=== PATIENT | male | born 1980 | race Caucasian/White ===

== ENCOUNTER 2021-10-09 16:34 | Emergency (ER) | payer OTHER ==
[2021-10-09] MEDS ORDERED: NA CHLORIDE 0.9% 1,000 ML ONE ×2 (17:24→19:38)
[2021-10-09 17:43] LABS: Protime INR 2.42
[2021-10-09 17:51] LABS: Absolute Lymphocytes (CBC) 2.3 K/uL (0.7-4.9); Albumin 3.1 g/dL (3.4-5.0); Bilirubin Direct 6.7 mg/dL (0-0.2); Lymphocytes % 24.1 % (15.3-44.8); MCV 91.6 fL (80-100); MPV 9.5 fL (7.6-11.3); Potassium 3.9 mmol/L (3.5-5.1); Protein, Total 7.7 g/dL (6.4-8.2)
[2021-10-09 17:54] LABS: Bilirubin Total 7.9 mg/dL (0.2-1.0)
[2021-10-09 18:02] LABS: Urine Blood Negative (Negative); Urine Glucose Negative (Negative); Urine Protein Negative (Negative); Urine Specific Gravity >=1.030 (1.005-1.030); Urine pH 5.5 (5.0-7.0)
[2021-10-09 18:08] LABS: Urine Blood Negative (Negative); Urine Glucose Trace (Negative); Urine Protein Trace (Negative); Urine Specific Gravity >=1.030 (1.005-1.030)
[2021-10-09 18:31] LABS: Urine Bacteria <20 /HPF (<20); Urine RBC <5 /HPF (None Seen)
[2021-10-09 18:46] LABS: Barbiturates NEGATIVE (NEGATIVE); Benzodiazepines NEGATIVE (NEGATIVE); Cocaine NEGATIVE (NEGATIVE); METHAMPHETAM NEGATIVE (NEGATIVE); Methadone NEGATIVE (NEGATIVE); Opiates NEGATIVE (NEGATIVE); Phencyclidine NEGATIVE (NEGATIVE); THC Cannibis NEGATIVE (NEGATIVE)
--- NOTE | 2021-10-09 19:09 | RAD REPORT ---
EXAM DESCRIPTION: CTAbdomen Pelvis W Contrast - 10/09/2021 6:57 pm CLINICAL HISTORY: Abdominal pain. abnormal liver enzymes COMPARISON: No comparisons TECHNIQUE: Biphasic CT imaging of the abdomen and pelvis was performed with 100 ml non-ionic IV cont rast. All CT scans are performed using dose optimization technique as appropriate and may include automated exposure control or mA/KV adjustment according to patient size. FINDINGS: The lung bases are clear. The liver demonstrates moderate intrahepatic biliary tree dilatation. Cholelithiasis. Spleen, pancrea s, adrenal glands and kidneys are within normal limits. No bowel obstruction, free air, free fluid or abscess. The appendix is normal. No evidence of signi ficant lymphadenopathy. No suspicious bony findings. IMPRESSION: Moderate intrahepatic biliary tree dilatation is seen. Cholelithiasis is present. Right upper quadrant ultrasound is recommended for further evaluation.
--- NOTE | 2021-10-09 19:41 | RAD REPORT ---
EXAM DESCRIPTION: US - Abdomen Exam Limited - 10/09/2021 7:35 pm CLINICAL HISTORY: elevated liver enzymes Abdominal pain COMPARISON: No comparisons FINDINGS: The gallbladder demonstrates extensive sludge and stones. Gallbladder wall is mildly thick ened up to 4 mm. The common bile duct is upper limit of normal measuring 5-6 mm. The liver demonstrates [id number] intrahepatic biliary tree dilatation. IMPRESSION: The gallbladder appears filled with stones and sludge mild thickening of the gallbladder wall. Common bile duct is upper limit of normal in size. Mild to moderate intrahepatic biliary tree dilatation. MRCP followup could be useful for further evaluation.
--- NOTE | 2021-10-09 19:53 | ER ---
Nurse's Notes [facility] Name: Farooq Brito Age: 40 yrs Sex: Male : 1980 Arrival Date: 10/09/2021 Time: 16:43 Bed 7 Private MD: Diagnosis: Hepatic failure, unspecified without coma;Other cholelithiasis with obstruction Presentation: 10/09 16:43 Chief complaint: Patient states: "for 2 weeks I notice that my skin color looks yellow em6 and my eyes are yellow. I'm also itchy all over my body. my LBM was on 10/08/21 and it was a light color. I used to weight 219 on 04/28/2021 now I weight 187". Coronavirus screen: At this time, the client does not indicate any symptoms associated with coronavirus-19. Ebola Screen: Patient negative for fever greater than or equal to 101.5 degrees Fahrenheit, and additional compatible Ebola Virus Disease symptoms. Initial Sepsis Screen: Does the patient meet any 2 criteria? No. Patient's initial sepsis screen is negative. Does the patient have a suspected source of infection? No. Patient's initial sepsis screen is negative. Risk Assessment: Do you want to hurt yourself or someone else? Patient reports no desire to harm self or others. Onset of symptoms was September 25, 2021. 16:43 Method Of Arrival: [employer] Enforcement: [place] [employer] em6 16:43 Acuity: ALVIN 3 em6 Triage Assessment: 16:48 General: Appears in no apparent distress. comfortable, Behavior is calm, cooperative. em6 Pain: Denies pain. Historical: - Allergies: 16:49 No Known Allergies; em6 - PMHx: 16:49 None; em6 - PSHx: 16:49 hernia repair; em6 - Immunization history:: Adult Immunizations unknown. - Social history:: Smoking status: unknown. Screenin:48 Abuse screen: Denies threats or abuse. Nutritional screening: No deficits noted. em6 Tuberculosis screening: No symptoms or risk factors identified. 17:00 Fall Risk IV access (20 points). Total Ziegler Fall Scale indicates No Risk (0-24 pts). em6 Assessment: 16:51 General: Appears in no apparent distress. comfortable, Behavior is calm, cooperative. em6 Pain: Denies pain. Neuro: Fontenot Agitation-Sedation Scale (RASS): 0 - Alert and Calm. Cardiovascular: Heart tones present Capillary refill < 3 seconds Patient's skin is warm and dry. Respiratory: Airway is patent Respiratory effort is even, unlabored, Respiratory pattern is regular, symmetrical, Breath sounds are clear bilaterally. GI: Abdomen is non-distended. : No signs and/or symptoms were reported regarding the genitourinary system. EENT: No signs and/or symptoms were reported regarding the EENT system. Derm: No signs and/or symptoms reported regarding the dermatologic system. Derm: unknown bug bites in both lower limbs. 18:00 Reassessment: Patient appears in no apparent distress at this time. No changes from em6 previously documented assessment. Patient and/or family updated on plan of care and expected duration. Pain level reassessed. Patient is alert, oriented x 3, equal unlabored respirations, skin warm/dry/pink. 19:52 General: Appears in no apparent distress. Neuro: Level of Consciousness is awake, kd3 alert, obeys commands, Oriented to person, place, time, situation. Respiratory: Airway is patent Trachea midline. Vital Signs: 16:43 BP 130 / 87; Pulse 65; Resp 16; Temp 98.5; Pulse Ox 98% on R/A; Weight 84.82 kg; Height em6 5 ft. 11 in. (180.34 cm); Pain 0/10; 18:00 BP 119 / 68; Pulse 55; Resp 14; Pulse Ox 99% ; em6 20:38 Pulse 60; Pulse Ox 100% on R/A; kd3 16:43 Body Mass Index 26.08 (84.82 kg, 180.34 cm) em6 ED Course: 16:43 Patient arrived in ED. em6 16:45 Jose Gross PA is PHCP. cp 16:45 Alonso Martin DO is Attending Physician. cp 16:48 Triage completed. em6 16:48 Arm band placed on. em6 16:51 Patient has correct armband on for positive identification. Bed in low position. Call em6 light in reach. Pulse ox on. NIBP on. 17:16 Edilson Butterfield RN is Primary Nurse. jd3 17:20 Inserted saline lock: 20 gauge in right antecubital area, using aseptic technique. em6 Blood collected. 18:58 CT Abd/Pelvis - IV Contrast Only In Process Unspecified. EDMS 19:36 US Abdomen Limited In Process Unspecified. EDMS 19:36 AMMONIA Sent. jb4 19:36 Acetaminophen Sent. jb4 19:36 ETOH Level Sent. jb4 19:36 Salicylate Sent. jb4 20:00 Initiated transfer to [facility], Jose Gross spoke with Coordinator there. 21:10 Called [facility] back to let them know Covid results, spoke with Sandra, she stated she would call me back. 22:04 Pt accepted for transfer by Dr. Ivis Martinez per Sandra Hobson. wm Administered Medications: 17:30 Drug: NS 0.9% 1000 ml Route: IV; Rate: 1 bolus; Site: right antecubital; em6 19:54 Follow up: Response: No adverse reaction kd3 19:32 Drug: NS 0.9% 1000 ml Route: IV; Rate: 1 bolus; Site: right antecubital; kd3 Medication: 16:51 VIS not applicable for this client. em6 Outcome: 19:52 ER care complete, transfer ordered by . cp 23:26 Patient left the ED. jb4 Signatures: Dispatcher [employer] EDMS Jose Gross PA PA cp Bryson, James RN RN jb4 Edilson Butterfield RN RN Yvette Quintero Nara Bedoya RN RN kd3 Aby Pimentel RN RN em6 Corrections: (The following items were deleted from the chart) 21:14 20:00 Initiated transfer to [facility] 21:14 20:00 Called [facility] back to let them know Covid results, spoke with Sandra, she stated she would call me back wm 22:27 22:26 Pt accepted for transfer by Dr. Ivis Martinez per Sandra Hobson [facility]
--- NOTE | 2021-10-09 19:53 | EDPHYS ---
Physician Documentation [facility] Name: Farooq Brito Age: 40 yrs Sex: Male : 1980 Arrival Date: 10/09/2021 Time: 16:43 Bed 7 Private MD: ED Physician Alonso Martin HPI: 10/09 17:30 This 40 yrs old Male presents to ER via Law Enforcement with complaints of Jaundice. cp 17:30 jaundice for past 2 weeks. Weight loss since April 2021. Generalized itching. Noticed cp discolored stool but denies abdominal pain and/or blood in stool. Historical: - Allergies: 16:49 No Known Allergies; em6 - PMHx: 16:49 None; em6 - PSHx: 16:49 hernia repair; em6 - Immunization history:: Adult Immunizations unknown. - Social history:: Smoking status: unknown. ROS: 17:35 Constitutional: Positive for weight loss, Negative for body aches, chills, fever, poor cp PO intake. 17:35 Eyes: Positive for icterus, Negative for discharge, pain, redness, visual disturbance. cp 17:35 ENT: Negative for drainage from ear(s), ear pain, sore throat, difficulty swallowing, difficulty handling secretions. 17:35 Cardiovascular: Negative for chest pain, edema, palpitations. 17:35 Respiratory: Negative for cough, shortness of breath, wheezing. 17:35 Abdomen/GI: Negative for abdominal pain, nausea, vomiting, diarrhea, constipation, black/tarry stool, rectal pain, rectal bleeding. 17:35 Back: Negative for pain at rest, pain with movement. 17:35 : Negative for urinary symptoms. 17:35 Neuro: Negative for altered mental status, dizziness, headache, numbness, syncope, weakness. 17:35 All other systems are negative. Exam: 17:40 Constitutional: The patient appears in no acute distress, alert, awake, comfortable, cp non-toxic, well developed, well nourished. 17:40 Head/Face: Normocephalic, atraumatic. cp 17:40 Eyes: Periorbital structures: appear normal, Pupils: equal, round, and reactive to light and accomodation, Extraocular movements: intact throughout, Sclera: icterus, is present, Lids and lashes: appear normal, bilaterally. 17:40 ENT: External ear(s): are unremarkable, Nose: is normal, Mouth: Lips: moist, Oral mucosa: pink and intact, moist, Posterior pharynx: Airway: no evidence of obstruction, patent, swelling, is not appreciated, erythema, is not appreciated, exudate, is not appreciated. 17:40 Neck: ROM/movement: is normal, is supple, without pain, no range of motions limitations, no meningismus, Lymph nodes: no appreciated lymphadenopathy. 17:40 Chest/axilla: Inspection: normal. 17:40 Cardiovascular: Rate: normal, Rhythm: regular, Edema: is not appreciated, JVD: is not appreciated. 17:40 Respiratory: the patient does not display signs of respiratory distress, Respirations: normal, no use of accessory muscles, no retractions, labored breathing, is not present, Breath sounds: are clear throughout, no decreased breath sounds, no stridor, no wheezing. 17:40 Abdomen/GI: Inspection: abdomen appears normal, Bowel sounds: active, all quadrants, Palpation: abdomen is soft and non-tender, in all quadrants. 17:40 Skin: Appearance: Color: jaundiced, Temperature: warm. 17:40 Neuro: Orientation: to person, place \T\ time. Mentation: is normal, Cerebellar function: is grossly normal, Motor: moves all fours, strength is normal, Sensation: is normal. Vital Signs: 16:43 BP 130 / 87; Pulse 65; Resp 16; Temp 98.5; Pulse Ox 98% on R/A; Weight 84.82 kg; Height em6 5 ft. 11 in. (180.34 cm); Pain 0/10; 18:00 BP 119 / 68; Pulse 55; Resp 14; Pulse Ox 99% ; em6 20:38 Pulse 60; Pulse Ox 100% on R/A; kd3 16:43 Body Mass Index 26.08 (84.82 kg, 180.34 cm) em6 MDM: 17:03 Patient medically screened. cp 17:30 Differential Diagnosis sepsis, biliary cancer, choledocholithiasis, biliary cp pancreatitis. 21:10 Data reviewed: vital signs, nurses notes, lab test result(s), radiologic studies, CT cp scan, ultrasound. 21:10 Physician consultation: was contacted at 21:10, regarding regarding transfer, to [facility]. cp patient's condition, accepting physician will be DR Martinez. 10/09 17:05 Order name: CBC with Diff; Complete Time: 17:58 cp 10/09 18:19 Interpretation: Reviewed. cp 10/09 17:05 Order name: CMP; Complete Time: 17:58 cp 10/09 17:59 Interpretation: Normal except: GLUC 115; AST 55; ALK 280; BILIT 7.9; ALB 3.1; GLOB 4.6; cp A/G 0.7. 10/09 17:05 Order name: Lipase; Complete Time: 17:58 cp 10/09 19:52 Interpretation: LIP 98; Reviewed. cp 10/09 17:05 Order name: Urine Microscopic Only; Complete Time: 20:12 cp 10/09 18:40 Interpretation: Reviewed. cp 10/09 17:05 Order name: Ptt, Activated; Complete Time: 17:48 cp 10/09 17:48 Interpretation: Abnormal: PTT 55.1. 10/09 17:05 Order name: PT-INR; Complete Time: 17:48 cp 10/09 17:48 Interpretation: Abnormal: PT 27.1. cp 10/09 17:05 Order name: LFT's; Complete Time: 17:58 cp 10/09 17:59 Interpretation: Abnormal: BILID 6.7. cp 10/09 17:05 Order name: UDS; Complete Time: 18:53 cp 10/09 18:53 Interpretation: Reviewed. cp 10/09 18:03 Order name: Urine Dipstick-Ancillary; Complete Time: 18:19 EDMS 10/09 18:08 Order name: Urine Dipstick-Ancillary; Complete Time: 18:19 EDMO 10/09 18:19 Interpretation: Normal except: UPROT Trace. cp 10/09 19:21 Order name: AMMONIA; Complete Time: 21:08 cp 10/09 19:21 Order name: Acetaminophen; Complete Time: 21:08 cp 10/09 19:21 Order name: Salicylate; Complete Time: 21:08 cp 10/09 19:21 Order name: ETOH Level; Complete Time: 21:08 cp 10/09 17:05 Order name: IV Saline Lock; Complete Time: 19:33 cp 10/09 17:05 Order name: Labs collected and sent; Complete Time: 19:26 cp 10/09 17:05 Order name: Urine Dipstick-Ancillary (obtain specimen); Complete Time: 19:26 cp 10/09 18:00 Order name: CT Abd/Pelvis - IV Contrast Only; Complete Time: 19:16 cp 10/09 19:17 Order name: US Abdomen Limited; Complete Time: 19:47 cp 10/09 19:27 Order name: NPO; Complete Time: 19:32 cp 10/09 20:16 Order name: SARS RAPID; Complete Time: 21:08 cp Administered Medications: 17:30 Drug: NS 0.9% 1000 ml Route: IV; Rate: 1 bolus; Site: right antecubital; em6 19:54 Follow up: Response: No adverse reaction kd3 19:32 Drug: NS 0.9% 1000 ml Route: IV; Rate: 1 bolus; Site: right antecubital; kd3 Disposition Summary: 10/09/21 19:52 Transfer Ordered Transfer Location: [facility] cp Reason: Higher level of care cp Condition: Stable cp Problem: new cp Symptoms: are unchanged cp Accepting Physician: DR Martinez(10/09/21 23:26) jb4 Diagnosis - Hepatic failure, unspecified without coma cp - Other cholelithiasis with obstruction cp Forms: - Medication Reconciliation Form cp - SBAR form cp Signatures: Dispatcher [employer] EDMS Jose Gross PA PA cp Bryson, James RN RN jb4 Nara Bedoya RN RN kd3 Aby Pimentel RN RN em6 Corrections: (The following items were deleted from the chart) 17:59 17:58 Normal except: GLUC 115. cp cp 17:59 17:59 Normal except: GLUC 115; AST 55; ALK 280; BILIT 7.9. cp cp 22:21 19:52 Doctor cp cp 23:26 22:21 DR Martinez cp jb4
[2021-10-09 20:08] LABS: Urine Mucus Slight /HPF (None Seen)
[2021-10-09 21:03] LABS: SARS-CoV-2 Antigen Rapid Res Negative (Negative)
[2021-10-10 02:18] VITALS: TEMP 98.5
[2021-10-10 02:20] VITALS: BP 119/68
[2021-10-10 02:22] VITALS: O2SAT 100
== END 2021-10-09 23:26 | disposition short-term general hospital (02) ==
LOC: ER 16:34
DX: K72.90 Hepatic failure, unspecified without coma (principal); K80.81 Other cholelithiasis with obstruction; Z20.822 Contact with and (suspected) exposure to COVID-19
CPT/HCPCS: 85025; 36415; 80320; 82140; 80329 ×2; 85610; 85730; 82248; 83690; 80053; 80307; 74177; 76705; 99284; 87811; Q9967; 81003; 81015; J7030